=== PATIENT | female | born 1975 | race Caucasian/White ===

== ENCOUNTER 2017-01-27 13:26 | Emergency (ER) | payer OTHER ==
[~2017-01-27 13:26] MED LIST: BACTRIM DS TAB1 EAC2 PO; DULCOLAX10 MG PR; FLAGYL500 MG PO; IBUPROFEN200 M3 PO; KEFLEX500 M4 PO; KEFLEX500 MG PO; NORCO 5-325 TA1 EACH PO; NORCO 5/325 TAB1 TAB PO; PERCOCET 5-3251 EACH PO; SURFAK240 M2 PO; ULTRAM50 M1 PO; ZOFRAN4 M2 PO; ZOFRAN4 MG PO
[2017-01-27] MEDS ORDERED: NKA (14:18)
[2017-01-27 14:51] LABS: URINE APPEARANCE HAZY; URINE BILIRUBIN NEGATIVE (NEG); URINE BLOOD LARGE (NEG); URINE COLOR YELLOW; URINE GLUCOSE (UA) NEGATIVE (NEG); URINE KETONE NEGATIVE (NEG); URINE LEUKOCYTE ESTERASE NEGATIVE (NEG); URINE NITRITE NEGATIVE (NEG); URINE PROTEIN MODERATE (NEG); URINE SPECIFIC GRAVITY 1.015 (1.003-1.030)
[2017-01-27 14:58] LABS: URINE AMORPHOUS 1+; URINE WBC RARE /[HPF] (0-5)
[2017-01-27 15:10] LABS: BASO % 0.8 % (0-2); BASO ABSOLUTE COUNT 0.1 tho/cmm (0.0-0.2); EOS % 1.5 % (0-7); EOSINOPHIL ABSOLUTE COUNT 0.2 tho/cmm (0.0-0.7); HCT-HEMATOCRIT 44.6 % (34.0-49.0); HGB-HEMOGLOBIN 14.9 gm/dl (12.0-15.5); LYMPH % 17.9 % (20-45); MCH (MEAN CORPUSCULAR HGB) 31.4 pg (28.0-32.0); MCHC MEAN CORPUSCULAR HGB CONC 33.4 % (32.0-36.0); MCV (MEAN CELL VOLUME) 93.9 fl (82.0-96.0); MEAN PLATELET VOLUME 10.3 cmc (9.4-12.4); MONO % 5.7 % (0-12); MONOCYTE ABSOLUTE COUNT 0.6 tho/cmm (0.0-1.2); NEUTROPHIL ABSOLUTE COUNT 8.1 tho/cmm (1.6-8.0); NEUTROPHIL-AUTOMATED 8.1 tho/cmm (1.6-8.0); NEUTROPHILS % 74.1 % (40-80); PLATELET COUNT 308 tho/cmm (150-450); RED BLOOD COUNT 4.75 mil/cmm (4.00-5.20); RED CELL DISTRIBUTION WIDTH 13.5 % (12.4-16.4)
[2017-01-27 15:24] LABS: ALBUMIN 3.6 g/dl (3.5-5.0); ALKALINE PHOSPHATASE 81 U/L (33-138); ALT/SGPT 28 U/L (12-78); BILIRUBIN,TOTAL 0.3 mg/dl (0-1.5); BLOOD UREA NITROGEN 11 mg/dl (6-24); CALCIUM 8.4 mg/dl (8.5-10.5); CARBON DIOXIDE-VENOUS 27 mmol/L (22-32); CHLORIDE 109 mmol/l (96-110); CREATININE 0.77 mg/dl (0.50-1.10); LIPASE 139 U/L (73-393); SODIUM 142 mmol/L (135-145); eGFR VALUE FOR BLACK >90 mL/Min
[2017-01-27 15:32] LABS: ANION GAP 10 mmol/L (0-20); AST/SGOT 20 U/L (10-40)
[2017-01-27 15:34] LABS: GLUCOSE 66 mg/dL (70-110); POTASSIUM 4.4 mmol/L (3.7-5.1)
[2017-01-27] MEDS ORDERED: PERCOCET 5-3251 EACH PO (18:16)
== END 2017-01-27 19:11 ==
LOC: EDMED 13:26
PROVIDERS: Physician Assistant
DX: N83.202 Unspecified ovarian cyst, left side (principal); F17.210 Nicotine dependence, cigarettes, uncomplicated
CPT/HCPCS: J1885; J2270; J2405; J7030; Q9967